=== PATIENT | female | born 1995 | race Two or more races ===

== ENCOUNTER 2025-06-11 09:30 | Outpatient (CLI) | payer OTHER | END 2025-06-11 09:31 | disposition home or self-care (01) | LOC: PRENATAL 09:30 | PROVIDERS: ATTEND Obstetrics & Gynecology Maternal & Fetal Medicine | DX: O45.93 Premature separation of placenta, unspecified, third trimester (principal); O99.283 Endocrine, nutritional and metabolic diseases complicating pregnancy, third trimester; O34.13 Maternal care for benign tumor of corpus uteri, third trimester; Z3A.19 19 weeks gestation of pregnancy ==